=== PATIENT | male | born 1995 | race Hispanic/Latino ===

== ENCOUNTER 2024-05-25 14:05 | Inpatient (IN) | payer OTHER ==
[2024-05-25] MEDS ORDERED: Sodium Chloride 0.9% 100 ML ONE (14:11)
[2024-05-25] MEDS ORDERED: CEFAZOLIN 2 GM VIAL ONE (14:11)
[2024-05-25] MEDS ORDERED: Boostrix 0.5 ML (Tdap) VIAL (>/=7 yrs of age) ONE (14:11)
[2024-05-25] MEDS ORDERED: Ipratropium/Albuterol 3 ML NEB NEB PRN (14:21)
[2024-05-25] MEDS ORDERED: Dextrose 50% Abboject 50 ML SYRINGE SLOW IVP PRN (14:21)
[2024-05-25] MEDS ORDERED: Dextrose 5% in Water 1,000 ML IV PRN (14:21)
[2024-05-25] MEDS ORDERED: Ondansetron PF 4 MG/2 ML Vial IVP PRN (14:21)
[2024-05-25] MEDS ORDERED: Glucagon 1 MG/ML KIT IM PRN (14:21)
[2024-05-25 14:22] LABS: #Basophils 0.08 10x3/uL (0.0-0.2); %Basophils 0.6 % (0.0-1.0); %Eosinophils 2.8 % (0.0-10.0); %Lymphocytes 23.4 % (21.0-51.0); %Monocytes 5.1 % (0.0-10.0); %Neutrophils 67.5 % (42.0-75.0); Hemoglobin 16.6 g/dL (14.0-18.0); Mean Corpuscular HGB CONC 34.6 g/dL (32.0-36.0); Mean Corpuscular Hemoglobin 30.3 pg (27.0-31.0); Mean Corpuscular Volume 87.6 fL (78.0-98.0); Mean Platelet Volume 9.4 fL (7.4-10.4); Platelet Count 280 10x3/uL (130-400); RBC Distribution Width 12.3 % (11.5-14.5); Red Blood Cell (RBC) Count 5.48 mill/uL (4.70-6.10)
[2024-05-25] MEDS ORDERED: traMADol HCl 50 MG TAB PO PRN (14:24)
[2024-05-25] MEDS ORDERED: Methocarbamol 500 MG TAB PO PRN (14:24)
[2024-05-25] MEDS ORDERED: fentaNYL 50 mcg/mL 1 mL Vial ONE (14:25)
[2024-05-25] MEDS ORDERED: Sodium Chloride 0.9% 1,000 ML IV SCH (14:30)
[2024-05-25 14:40] LABS: Acetaminophen Less than 10 mcg/mL (Less than 10); Alcohol Less than 10.0 mg/dL (Less than 10); Magnesium 2.1 mg/dL (1.6-2.6); Salicylate Less than 8.0 mg/dL (Less than 8.0)
[2024-05-25 14:41] LABS: ALT (SGPT) 51 U/L (8-55); AST (SGOT) 39 U/L (5-34); Albumin 4.2 g/dL (3.5-5.0); Alkaline Phosphatase 62 U/L (40-110); Anion Gap 15 mmol/L (10-20); BUN (Urea Nitrogen) 12 mg/dL (8.9-20.6); Bilirubin, Total 0.8 mg/dL (0.2-1.2); Calc. Creatinine Clearance 0 mL/min (70-130); Calcium 9.4 mg/dL (7.8-10.44); Carbon Dioxide 22 mmol/L (22-29); Chloride 106 mmol/L (98-107); Estimated GFR 125; Globulin 3.4 g/dL (2.4-3.5); Glucose 131 mg/dL (70-105); Potassium 3.5 mmol/L (3.5-5.1); Protein, Total 7.6 g/dL (6.0-8.3); Sodium 139 mmol/L (136-145)
[2024-05-25] MEDS ORDERED: Iopamidol-370 76% 500 ML MDV (1 ML CHARGE) ONE (14:57)
[2024-05-25] MEDS: Ketorolac Tromethamine 30 MG (1 mL) VIAL IVP SCH (17:29)
[2024-05-25] MEDS: Lactated Ringer's 1,000 ML IV SCH (17:29)
[2024-05-25] MEDS: traMADol HCl 50 MG TAB PO SCH (17:30)
[2024-05-25] MEDS: Acetaminophen 325 MG TAB PO SCH (17:31)
[2024-05-25 19:24] VITALS: BMI 49.9
[2024-05-25 19:39] LABS: INR-International Normal Ratio 1.1; PTT 25.2 sec (22.9-36.1); Prothrombin Time 13.9 sec (12.0-14.7)
[2024-05-25] MEDS: Senokot S 8.6-50 MG TAB PO SCH (20:38)
[2024-05-25] MEDS: Morphine 2 MG/ML VIAL SLOW IVP PRN (20:39)
[2024-05-25] MEDS: Famotidine/PF 20 mg/2ml Vial SLOW IVP SCH (20:39)
[2024-05-25 22:43] LABS: Lactic Acid 1.69 mmol/L (0.5-2.2)
[2024-05-25] MEDS: CEFAZOLIN 2 GM in Sodium Chloride 0.9% 100 ML IVPB SCH (23:19)
[2024-05-26] MEDS: CEFAZOLIN 2 GM in Sodium Chloride 0.9% 100 ML IVPB SCH ×2 (05:39→16:14)
[2024-05-26 05:46] LABS: INR-International Normal Ratio 1.1; PTT 26.8 sec (22.9-36.1); Prothrombin Time 13.8 sec (12.0-14.7)
[2024-05-26 05:50] LABS: Anion Gap 13 mmol/L (10-20); BUN (Urea Nitrogen) 9 mg/dL (8.9-20.6); Calc. Creatinine Clearance 293 mL/min (70-130); Calcium 8.6 mg/dL (7.8-10.44); Carbon Dioxide 23 mmol/L (22-29); Chloride 107 mmol/L (98-107); Estimated GFR 127; Glucose 99 mg/dL (70-105); Potassium 3.6 mmol/L (3.5-5.1); Sodium 139 mmol/L (136-145)
[2024-05-26] MEDS ORDERED: Lidocaine 1% (PF) 30 ML VIAL ONE (06:52)
[2024-05-26] MEDS ORDERED: EPINEPHrine 1 MG/ML VIAL ONE (06:52)
[2024-05-26] MEDS ORDERED: Bupivacaine PF 0.5% 30 ML VIAL ONE (06:52)
[2024-05-26] MEDS ORDERED: PROPOFOL 20 ML ONE (07:02)
[2024-05-26] MEDS ORDERED: fentaNYL 50 mcg/mL 1 mL Vial ONE (07:02)
[2024-05-26] MEDS ORDERED: Lidocaine 1% PF 5 ML VIAL ONE (07:02)
[2024-05-26] MEDS ORDERED: Midazolam HCl 2 mg/2 ml Vial ONE (07:04)
[2024-05-26] MEDS ORDERED: CEFAZOLIN 2 GM VIAL ONE (07:36)
[2024-05-26] MEDS ORDERED: Ondansetron PF 4 MG/2 ML Vial ONE (07:59)
[2024-05-26] MEDS ORDERED: Dexamethasone 20 MG/5 ML VIAL ONE (07:59)
[2024-05-26] MEDS ORDERED: fentaNYL PF 100 MCG/2 ML SYRINGE ONE (07:59)
[2024-05-26] MEDS ORDERED: Metoprolol Tartrate 5 MG (5 mL) VIAL ONE (08:11)
[2024-05-26] MEDS ORDERED: Promethazine HCl 25 MG/ML VIAL IM PRN (08:29)
[2024-05-26] MEDS ORDERED: Ondansetron HCl/PF 4 MG/2 ML Vial IVP PRN (08:29)
[2024-05-26] MEDS ORDERED: HYDROmorphone 2 MG/ML VIAL ONE (08:35)
[2024-05-26] MEDS ORDERED: Metoclopramide HCl 10 MG (2 mL) VIAL ONE (08:40)
[2024-05-26] MEDS ORDERED: Bupivacaine 0.25% HCL 30 ML VIAL ONE (08:46)
[2024-05-26] MEDS: Polyethylene Glycol 3350 17 GM Packet PO SCH (09:00)
[2024-05-26] MEDS ORDERED: Sterile Water 10 ML ONE (09:13)
[2024-05-27 05:15] LABS: #Basophils 0.03 10x3/uL (0.0-0.2); %Basophils 0.2 % (0.0-1.0); %Eosinophils 0.2 % (0.0-10.0); %Lymphocytes 19.6 % (21.0-51.0); %Neutrophils 72.5 % (42.0-75.0); Hematocrit 38.3 % (42.0-52.0); Hemoglobin 13.5 g/dL (14.0-18.0); Mean Corpuscular HGB CONC 35.2 g/dL (32.0-36.0); Mean Corpuscular Hemoglobin 30.1 pg (27.0-31.0); Mean Corpuscular Volume 85.5 fL (78.0-98.0); Mean Platelet Volume 9.8 fL (7.4-10.4); Platelet Count 258 10x3/uL (130-400); RBC Distribution Width 12.2 % (11.5-14.5); Red Blood Cell (RBC) Count 4.48 mill/uL (4.70-6.10)
[2024-05-27] MEDS: Enoxaparin 30 MG (0.3 mL) SYRINGE SC SCH (08:39)
[2024-05-27] MEDS ORDERED: Enoxaparin 40 MG (0.4 mL) SYRINGE SC SCH (09:00)
[2024-05-27 12:46] VITALS: BP 132/88; TEMP 98.2
[2024-05-27] MEDS: Ibuprofen 600 MG TAB PO PRN (15:36)
== END 2024-05-27 16:04 | disposition home or self-care (01) | DRG 492 ==
LOC: ERS 14:05 → SURG A 15:52 → SURG B 05-26 20:26
PROVIDERS: ADMIT Surgery; ATTEND Surgery
PROC: 0QSJ04Z Reposition Right Fibula with Internal Fixation Device, Open Approach (ICD-10-PCS; principal; 2024-05-26)
PROC: 0QSG05Z Reposition Right Tibia with External Fixation Device, Open Approach (ICD-10-PCS; 2024-05-26)
DX: S82.871B Displaced pilon fracture of right tibia, initial encounter for open fracture type I or II (principal); S82.831B Other fracture of upper and lower end of right fibula, initial encounter for open fracture type I or II; W17.89XA Other fall from one level to another, initial encounter; Z79.899 Other long term (current) drug therapy
CPT/HCPCS: 36415; 36416; 70450; 71045; 71260; 72125; 72170; 74177; 80048; 80053; 80307; 83605; 83735; 85025; 85610; 85730; 86850; 86900; 86901; 90471; 90715; 93005; 94760; 96374; 96375; C1713; C1781; G0390; J0171; J0665; J1100; J1171; J1650; J1885; J2250; J2272; J2405; J2704; J2765; J3010; J3490; J7120; Q9967